=== PATIENT | female | born 1975 | race Caucasian/White ===

== ENCOUNTER 2017-01-28 19:38 | Emergency (ER) | payer SELFPAY ==
[~2017-01-28] VITALS: Ht 160 cm; Wt 59.0 kg
[2017-01-28 19:56] VITALS: BP 150/73
--- NOTE | 2017-01-28 20:15 | NUR ---
AMBULATED TO ER OF
[2017-01-28] MEDS ORDERED: HYDROmorphone 1 MG/ML AMP IM ONE (21:15)
[2017-01-28] MEDS ORDERED: ONDANSETRON 4 MG ODT PO ONE (21:20)
[2017-01-28 21:28] LABS: APPEARANCE,URINE HAZY (CLEAR); BILIRUBIN,URINE NEGATIVE (NEGATIVE); BLOOD, URINE 3+ (NEGATIVE); COLOR,URINE YELLOW (YELLOW); LEUKOCYTE ESTERASE ,URINE TRACE (NEGATIVE); NITRITE, URINE NEGATIVE (NEGATIVE); UGLUCOSE NEGATIVE (NEGATIVE)
[2017-01-28 21:32] LABS: BARBITURATE, URINE NEG. ng/ml (NEG <=200); BENZODIAZEPINE, URINE NEG. ng/mL (NEG <=200); CANNABINOID, URINE NEG. ng/mL (NEG <=50); COCAINE, URINE NEG. ng/mL (NEG <=300); OPIATE, URINE POS. ng/mL (NEG <=2000); PHENCYCLIDINE SCREEN,URINE NEG. ng/mL (NEG <=25)
[2017-01-28 21:40] LABS: BASOPHILS # (AUTO) 0.1 K/uL (0.00-0.22); EOSINOPHILS # (AUTO) 0.1 K/uL (0-0.4); HEMATOCRIT 36.3 % (36-48); HEMOGLOBIN 11.8 g/dL (12.0-16.0); LYMPHOCYTES # (AUTO) 0.8 K/uL (2.5-16.5); MEAN CORPUSCULAR HEMOGLOBIN 35 pg (27-31); MEAN CORPUSCULAR HGB CONC 33 g/dL (33-37); MEAN CORPUSCULAR VOLUME 107 fL (80-94); MONOCYTES # (AUTO) 0.3 K/uL (0.8-1.0); NEUTROPHILS # (AUTO) 1.8 K/uL (1.8-7.7); PLATELET COUNT (AUTO) 165 K/uL (140-450); RED BLOOD CELL COUNT(AUTO) 3.41 MIL/uL (4.20-5.40); RED CELL DISTRIBUTION WIDTH 14.6 % (11.6-13.7); WHITE BLOOD COUNT (AUTO) 3.1 K/uL (4.8-10.8)
[2017-01-28 21:50] LABS: RBC,URINE TOO NUMEROUS TO COUN /HPF (0-5)
[2017-01-28 21:51] LABS: WBC,URINE 0-5 (RARE) /HPF (0-5)
[2017-01-28 21:54] LABS: ANION GAP 15.4 (8-16); CARBON DIOXIDE 23.4 mmol/L (21-32); POTASSIUM 3.8 mmol/L (3.5-5.1)
[2017-01-28 21:59] LABS: ALBUMIN 4.1 g/dL (3.4-5.0); TOTAL BILIRUBIN 0.3 mg/dL (0.0-1.0)
--- NOTE | 2017-01-28 22:34 | NUR ---
MOVED TO ER BED 4
--- NOTE | 2017-01-28 22:46 | NUR ---
PT SENT TO CT VIA W/C WITH [employer] [id number]
--- NOTE | 2017-01-28 22:57 | NUR ---
PT BACK FROM CT, Pt BACK FROM CT. Transfer of care at this time TO NOHELIA ADAMS.
[2017-01-28] MEDS ORDERED: HYDROcodone/APAP 5/325 MG 1 TAB TAB PO ONE (23:10)
--- NOTE | 2017-01-28 23:21 | NUR ---
pt resting in bed, vss, no s/s of distress noted at the moment.
[2017-01-29 00:11] VITALS: BP 144/85
== END 2017-01-29 00:11 | disposition home or self-care (01) ==
LOC: EEVIPCON 19:38 → MED 19:38
DX: R10.31 Right lower quadrant pain (principal); N19 Unspecified kidney failure; Z90.49 Acquired absence of other specified parts of digestive tract; Z88.0 Allergy status to penicillin; Z88.8 Allergy status to other drugs, medicaments and biological substances
CPT/HCPCS: 36415; 74176; 80053; 80305; 81001; 81025; 83690; 85025; 96372; 99285; J1170; S0119